=== PATIENT | male | born 1950 | race Hispanic/Latino ===

== ENCOUNTER → 2024-07-10 | Outpatient (CLI) | payer OTHER, MEDICARE ==
[~2024-07-10] MED LIST: IOHEXOL 350 MG/ML 100ML INFUS..BTL IV ONE; NITROGLYCERIN 4.9GM SPRAY 60 SPRAY/BOT SPRY TL ONE; metoPROLOL tartRATE 1 MG/ML 5ML VIAL IV ONE
--- NOTE | 2024-07-10 15:47 | HMCIMG ---
CT CARDIAC ANGIO W/CONT. CCTA HISTORY: Dyspnea COMPARISON: None TECHNIQUE: Multiple sequential axial images of the chest were obtained along with the CT angiogram of the chest study. Patient was given 100 cc of Omnipaque through intravenous route. FINDINGS: There is no evidence of pulmonary nodule or parenchymal disease. No pleural effusion or pericardial effusion is seen. There is no evidence of pneumothorax. There are normal size mediastinal and hilar lymph nodes. The heart is borderline enlarged. Coronary arterial calcifications are seen. Degenerative changes of the thoracolumbar spine are present. IMPRESSION: 1. No evidence of pulmonary nodule or effusion is seen. Please see CT angiogram report of coronary arteries.
== END | disposition home or self-care (01) ==
LOC: RAH 09:01
PROVIDERS: ATTEND Internal Medicine Cardiovascular Disease
DX: I25.10 Atherosclerotic heart disease of native coronary artery without angina pectoris (principal); R06.00 Dyspnea, unspecified; M47.815 Spondylosis without myelopathy or radiculopathy, thoracolumbar region
CPT/HCPCS: 75574; J3490 ×2; Q9967

== ENCOUNTER 2024-07-16 07:36 | Day surgery (SDC) | payer OTHER, MEDICARE ==
[2024-07-16] VITALS (12 sets, daily range): BP systolic 82–134; BP diastolic 51–78; PULSE 76–88; RESP 14–18; TEMP 97.5–98.1
[~2024-07-16] VITALS: Ht 165.1 cm; Wt 68.0 kg
[2024-07-16] MEDS ORDERED: TAMS-1 PO (08:05)
[2024-07-16] MEDS ORDERED: SIMV-46 PO (08:05)
[2024-07-16] MEDS ORDERED: LISI10TA24 PO (08:05)
[2024-07-16] MEDS ORDERED: METO-408 PO (08:05)
[2024-07-16] MEDS ORDERED: METF-444 PO (08:05)
[2024-07-16] MEDS ORDERED: BRIM5DRO5 OP (08:05)
[2024-07-16] MEDS ORDERED: LATA2.5D14 OP (08:05)
[2024-07-16] MEDS: 0.9%NACL 1000ML 1,000 ML IV ONE (08:15)
[2024-07-16] MEDS ORDERED: proPOFol 10 MG/ML 20ML VIAL IV ONE (09:33)
[2024-07-16] MEDS ORDERED: LIDOCAINE HCL 1% 20 ML VIAL ONE (09:33)
== END 2024-07-16 10:51 | disposition home or self-care (01) ==
LOC: DAH 07:36 → ENDO 07:36
PROVIDERS: ATTEND Internal Medicine Gastroenterology
DX: Z12.11 Encounter for screening for malignant neoplasm of colon (principal); I10 Essential (primary) hypertension; E11.9 Type 2 diabetes mellitus without complications; Z80.0 Family history of malignant neoplasm of digestive organs; Z98.890 Other specified postprocedural states
CPT/HCPCS: 82948; J7030 ×2; J2704; G0105; A4215 ×2; A4223; A4222; A4221; A4663; A4606; 45378; J3490

== ENCOUNTER 2024-07-17 07:33 | Day surgery (SDC) | payer OTHER, MEDICARE ==
[2024-07-17] VITALS (10 sets, daily range): BP systolic 74–145; BP diastolic 40–82; PULSE 74–88; RESP 14–18; TEMP 97.3–207.1
[~2024-07-17] VITALS: Ht 165.1 cm; Wt 68.0 kg
[~2024-07-17 07:33] MED LIST changes: +BRIM5DRO5 OP; -IOHEXOL 350 MG/ML 100ML INFUS..BTL IV ONE; +LATA2.5D14 OP; +LISI10TA24 PO; +METF-444 PO; +METO-408 PO; -NITROGLYCERIN 4.9GM SPRAY 60 SPRAY/BOT SPRY TL ONE; +SIMV-46 PO; +TAMS-1 PO; -metoPROLOL tartRATE 1 MG/ML 5ML VIAL IV ONE
[2024-07-17] MEDS: 0.9%NACL 1000ML 1,000 ML IV ONE (08:36)
[2024-07-17] MEDS ORDERED: proPOFol 10 MG/ML 20ML VIAL IV ONE (08:48)
== END 2024-07-17 10:13 | disposition home or self-care (01) ==
LOC: DAH 07:33 → ENDO 07:33
PROVIDERS: ATTEND Internal Medicine Gastroenterology
DX: K62.5 Hemorrhage of anus and rectum (principal); K63.5 Polyp of colon; K63.89 Other specified diseases of intestine; D12.8 Benign neoplasm of rectum; E11.9 Type 2 diabetes mellitus without complications; I10 Essential (primary) hypertension; E66.9 Obesity, unspecified; Z68.26 Body mass index [BMI] 26.0-26.9, adult; Z79.84 Long term (current) use of oral hypoglycemic drugs; Z80.0 Family history of malignant neoplasm of digestive organs; Z79.899 Other long term (current) drug therapy
CPT/HCPCS: 82948 ×2; 45380; J7030 ×2; J2704; A4615; A4215 ×2; A4223; A4222; A4221; A4663; A4606; J3490